=== PATIENT | female | born 1960 | race Caucasian/White ===

== ENCOUNTER 2019-12-06 08:16 | Day surgery (SDC) | payer OTHER, SELFPAY ==
[~2019-12-06] VITALS: Ht 167.6 cm; Wt 81.6 kg
[2019-12-06] MEDS ORDERED: fentaNYL citrate 0.05 MG/ML VIAL ONE (08:51)
[2019-12-06] MEDS ORDERED: MIDAZOLAM 2 MG/2 ML VIAL ONE (08:51)
[2019-12-06] MEDS: fentaNYL citrate 0.05 MG/ML VIAL IVP ONE (09:01)
[2019-12-06] MEDS: MIDAZOLAM 2 MG/2 ML VIAL IVP ONE (09:01)
[2019-12-06] MEDS: LIDOCAINE 2% 100 MG/5 ML UJET TP ONE (09:16)
[2019-12-06] MEDS ORDERED: LIDOCAINE 2% 1000 MG/50 ML VIAL INJ ONE (11:05)
== END 2019-12-06 10:13 | disposition home or self-care (01) ==
LOC: MDS 08:16 → MFCC 08:16 → MDS 10:13
PROVIDERS: ATTEND Internal Medicine Gastroenterology
DX: Z12.11 Encounter for screening for malignant neoplasm of colon (principal); K57.30 Diverticulosis of large intestine without perforation or abscess without bleeding; K74.60 Unspecified cirrhosis of liver; K44.9 Diaphragmatic hernia without obstruction or gangrene; K21.0 Gastro-esophageal reflux disease with esophagitis; Z68.32 Body mass index [BMI] 32.0-32.9, adult; Z11.59 Encounter for screening for other viral diseases
CPT/HCPCS: 43235; 45378; J2001; J2250; J3010; U0003